=== PATIENT | male | born 1985 | race Two or more races ===

== ENCOUNTER 2024-10-08 11:02 | Emergency (ER) | payer MEDICAID, SELFPAY ==
[2024-10-08 11:39] VITALS: BP 187/118; BP 197/111; PULSE 87; RESP 17; TEMP 36.9; O2SAT 97; BMI 31.3
--- NOTE | 2024-10-08 11:53 | EDNOTE_ITS ---
Lower Extremity Injury RME/HPI General Chief Complaint: Extremity Injury, Lower Stated Complaint: GOUT ATTACK RIGHT FOOT Time Seen by Provider: 10/08/24 11:11 Arrival date/time: 10/08/24 11:02 39-year-old male with history of gout presents the emergency department complaints of gout flare to the right foot Limitations: no limitations Related Data Previous Rx's ?Medication ?Instructions ?Recorded indomethacin 50 mg capsule 50 mg PO TID #30 caps 01/11/21 meloxicam 7.5 mg tablet 7.5 mg PO QDAY #10 tabs 12/13/21 pantoprazole 20 mg tablet,delayed 20 mg PO QDAY #10 tabs 12/14/21 release (Protonix) ibuprofen 800 mg tablet 800 mg PO TID PRN pain #30 tabs 08/11/22 prednisone 50 mg tablet 50 mg PO QDAY #5 tabs 08/11/22 hydrocodone 5 mg-acetaminophen 325 1 tab PO BID PRN pain #10 tabs 05/30/23 mg tablet lidocaine 5 % topical patch 3 patch topical QDAY #6 ea 07/14/23 naproxen 500 mg tablet (Naprosyn) 500 mg PO BID PRN pain #30 tabs 07/14/23 lidocaine 5 % topical patch 1 patch topical Q24H #15 ea 06/22/24 naproxen 500 mg tablet (Naprosyn) 500 mg PO BID PRN pain #60 tabs 06/22/24 colchicine 0.6 mg tablet 0.6 mg PO QDAY 1 day #1 tab 10/08/24 hydrocodone 5 mg-acetaminophen 325 1 tab PO BID PRN pain #6 tabs 10/08/24 mg tablet indomethacin 50 mg capsule 50 mg PO TID 5 days #15 caps 10/08/24 indomethacin 50 mg capsule 50 mg PO TID 5 days #15 caps 10/08/24 prednisone 10 mg tablet 30 mg (3 x 10 mg) PO BID 3 days 10/08/24 #18 tabs prednisone 10 mg tablet 30 mg (3 x 10 mg) PO BID 3 days 10/08/24 #18 tabs Allergies Allergy/AdvReac Type Severity Reaction Status Date / Time No Known Allergies Allergy Verified 10/08/24 11:04 Review of Systems Review of Systems Systems Reviewed: All systems reviewed, normal except as documented Constitutional Constitutional: Reports system reviewed and no additional complaints, except as documented, Denies fever(s) and Denies headache(s) Eyes Eyes: Reports system reviewed and no additional complaints, except as documented and Denies blurry vision ENT Ears, Nose, Mouth, and Throat: Reports system reviewed and no additional complaints, except as documented, Denies headache(s), Denies nasal congestion and Denies nasal discharge Cardiovascular Cardiovascular: Reports system reviewed and no additional complaints, except as documented, Denies chest pain and Denies dyspnea Respiratory Respiratory: Reports system reviewed and no additional complaints, except as documented, Denies chest congestion, Denies cough and Denies dyspnea Gastrointestinal Gastrointestinal: Reports system reviewed and no additional complaints, except a s documented and Denies abdominal pain Musculoskeletal Musculoskeletal: Reports system reviewed and no additional complaints, except as documented, Reports abnormal gait, Reports arthralgias, Denies deformity, Denies joint swelling, Denies numbness, Reports stiffness and Denies tingling Integumentary/Breasts Skin/Breast: Reports system reviewed and no additional complaints, except as documented and Denies rash Neurologic Neurologic: Reports system reviewed and no additional complaints, except as documented, Reports as per HPI, Reports abnormal gait, Denies headache(s), Denies numbness and Denies tingling Past Medical History Past Medical History NEUROLOGIC: Negative Neurological Disorders CARDIAC: Negative Cardiac Disorders ED Exam General Limitations: Present no limitations General appearance: Present alert and in no apparent distress Head Head exam: Present atraumatic Eye Eye exam: Present normal appearance, PERRL and EOMI ENT ENT exam: Present normal exam, normal oropharynx and mucous membranes moist Neck Neck exam: Present normal inspection, full ROM and trachea midline Chest Chest inspection: Present normal inspection and symmetric chest wall rise Respiratory Respiratory exam: Present normal lung sounds bilaterally Cardiovascular Cardiovascular exam: Present regular rate, normal rhythm and normal heart sounds Abdominal Exam Abdominal exam: Present soft and normal bowel sounds Extremities Exam Extremities exam: Present full ROM, tenderness (Foot pain right) and normal capillary refill; Absent pedal edema, joint swelling or calf tenderness Back Exam Back exam: Present normal inspection and full ROM Neurological Exam Neurological exam: Present alert, oriented X3 and CN II-XII intact Psychiatric Psychiatric exam: Present normal affect and normal mood Skin Skin exam: Present warm, dry, intact and normal color Course Quality Measures none Orders Category Date Time Status Colchicine Med 10/08/24 11:49 Discontinued 1.2 mg PO X1 ONE Dexamethasone Inj [Decadron Inj] Med 10/08/24 11:49 Discontinued 10 mg PO X1 ONE Ketorolac Inj [Toradol Inj] Med 10/08/24 11:49 Discontinued 30 mg IM X1 ONE Vital Signs Vital signs: Vital Signs Temperature 98.5 F 10/08/24 11:39 Pulse Rate 87 10/08/24 11:39 Respiratory Rate 17 10/08/24 11:39 Blood Pressure 197/111 H 10/08/24 11:39 Pulse Oximetry (%) 97 10/08/24 11:39 Oxygen Delivery Method Room Air 10/08/24 11:39 O2 saturation 97% room air within normal limits Extremity Injury, Lower MDM Narrative MDM Narrative:: 39-year-old male with history of gout presents the emergency department complaints of gout flare to the right foot Patient reports swelling to right foot patient reports no recent injury patient reports he is having gout attack Patient given pain medication here discharged with meds Patient discharged home in no distress to follow-up with primary care doctor in the next 24 to 48 hours and for any worsening symptoms to return to the ER immediately Patient data External records reviewed:: [facility] previous records Clinical information provided by:: patient Social determinants that could affect healthcare access:: none Patient has the following chronic illnesses:: None How is presenting disease/condition affected by chronic disease/condition?: no chronic disease Evaluation data The following diagnostics were reviewed and interpreted by me:: other (specify) (N/A) Lab and/or radiology exams considered but not ordered:: Consider not ordered Interpretation Summary: N/A Medications / Prescriptions Medications or Prescriptions considered but not ordered:: Given Medication administrations:: Medication Administration History Discontinued Medications Colchicine (Colchicine 0.6 Mg Tablet) 1.2 mg PO X1 ONE Stop: 10/08/24 11:50 Last Admin: 10/08/24 12:19 Dose: 1.2 mg Documented By: ARF Dexamethasone Sodium Phosphate (Dexamethasone Sod Phos Inj 10 Mg/Ml Vial) 10 mg PO X1 ONE Stop: 10/08/24 11:50 Last Admin: 10/08/24 12:20 Dose: 10 mg Documented By: ARF Ketorolac Tromethamine (Ketorolac Inj 30 Mg/Ml Vial) 30 mg IM X1 ONE Stop: 10/08/24 11:50 Last Admin: 10/08/24 12:19 Dose: 30 mg Documented By: ARF Given Consultations Consultation(s) initiated? (list below): No Diagnosis Extremity Injury, Lower Differential Diagnosis: ankle sprain and strain, fracture of toe and ankle fracture Most likely diagnosis given after review of the tests above:: Foot sprain Admission Indicated Admission indicated?: not indicated Admission Request Was there a request for admission?: No Disposition Plan Disposition Plan: Discharge Discharge Attestation Discharge Attestation: The patient and all family members were given an opportunity to ask questions and understood the discharge instructions. Discharge instructions specifically effects, indications for sooner follow up or return to the emergency department, and the expected course of current diagnosis. Patient condition: Stable Discharge Plan Plan Patient Disposition: HOME (Self Care) Disposition Comment: Stable Prescriptions/Referrals Prescriptions/Med Rec: New prednisone 10 mg tablet 30 mg PO BID 3 Days Qty: 18 0RF indomethacin 50 mg capsule 50 mg PO TID 5 Days Qty: 15 0RF Rx Instructions: administer with food or milk prednisone 10 mg tablet 30 mg PO BID 3 Days Qty: 18 0RF hydrocodone-acetaminophen 5-325 mg tablet 1 tab PO BID MDD 10 PRN (Reason: pain) Qty: 6 0RF indomethacin 50 mg capsule 50 mg PO TID 5 Days Qty: 15 0RF Rx Instructions: administer with food or milk colchicine 0.6 mg tablet 0.6 mg PO QDAY 1 Days Qty: 1 0RF Discontinued colchicine 0.6 mg capsule 0.6 mg PO BID Qty: 10 0RF colchicine 0.6 mg capsule 0.6 mg PO QDAY Qty: 1 0RF No Action pantoprazole [Protonix] 20 mg tablet,delayed release (DR/EC) 20 mg PO QDAY Qty: 10 0RF indomethacin 50 mg capsule 50 mg PO TID Qty: 30 0RF Rx Instructions: administer with food or milk meloxicam 7.5 mg tablet 7.5 mg PO QDAY Qty: 10 0RF ibuprofen 800 mg tablet 800 mg PO TID PRN (Reason: pain) Qty: 30 0RF prednisone 50 mg tablet 50 mg PO QDAY Qty: 5 0RF hydrocodone-acetaminophen 5-325 mg tablet 1 tab PO BID MDD 10 PRN (Reason: pain) Qty: 10 0RF naproxen [Naprosyn] 500 mg tablet 500 mg PO BID PRN (Reason: pain) Qty: 30 0RF lidocaine 5 % adhesive patch,medicated 3 patch topical QDAY Qty: 6 0RF Rx Instructions: leave on most painful area for up to 12 hrs naproxen [Naprosyn] 500 mg tablet 500 mg PO BID PRN (Reason: pain) Qty: 60 0RF lidocaine 5 % adhesive patch,medicated 1 patch topical Q24H Qty: 15 0RF Rx Instructions: leave on most painful area for up to 12 hrs Problem List Clinical Impression: Gout attack Patient/Caregiver Discharge Instructions Education Materials: What Is Gout? Additional Instructions: Please follow up with your primary care doctor in the next 24-48hrs for any worsening symptoms return here immediately Print Language: Slovenian Stand Alone Forms: Feli Award Info., Work/School Release, Patient Portal Info Letter PA/DIGITAL IMAGER Supervising Physician PA/DIGITAL IMAGER Supervising Physician: dr taylor
[2024-10-08] MEDS: KETOROLAC INJ 30 MG/ML VIAL IM (12:19)
[2024-10-08] MEDS: COLCHICINE 0.6 MG TABLET 1.2 MG PO (12:19)
[2024-10-08] MEDS: DEXAMETHASONE SOD PHOS INJ 10 MG/ML VIAL PO (12:20)
== END 2024-10-08 13:31 | disposition home or self-care (01) ==
PROVIDERS: Emergency Provider Emergency Medicine; PCP Family Medicine
DX: M10.9 Gout, unspecified (principal)
CPT/HCPCS: 96372; 99283; J1100; J1885; A9270

== ENCOUNTER 2025-01-04 11:36 | Emergency (ER) | payer MEDICAID, SELFPAY ==
[2025-01-04 11:37] VITALS: BMI 34.7
[2025-01-04 12:14] VITALS: BP 166/100; PULSE 74; RESP 18; TEMP 36.9; O2SAT 98
--- NOTE | 2025-01-04 12:46 | EDNOTE_ITS ---
<Statement entered by Zaida Rocha MD - 01/15/25 19:23> As co-signing physician, I was present and available for consult prn. I concur with the plan and care as documented by the midlevel provider. ED Extremity Problem RME/HPI General Chief complaint: Extremity Problem,Nontraumatic Stated complaint: GOUT FLAIR UP SINCE YESTERDAY Time Seen by Provider: 01/04/25 12:22 Arrival date/time: 01/04/25 11:36 This is a 39-year-old male that comes in with complaints of gout flare to his r ight ankle. Patient states that this has happened before. Patient states he is already on colchicine. Patient states he had a similar flareup in September and was given steroids and anti-inflammatories at that time. Patient states this helped his pain. Patient has a history of gout. Related Data Previous Rx's ?Medication ?Instructions ?Recorded indomethacin 50 mg capsule 50 mg PO TID #30 caps 01/11 meloxicam 7.5 mg tablet 7.5 mg PO QDAY #10 tabs 11/26 07/17 pantoprazole 20 mg tablet,delayed 20 mg PO QDAY #10 ta bs 12/14/21 release (Protonix) ibuprofen 800 mg tablet 800 mg PO TID PRN pain #30 t abs 08/11/22 prednisone 50 mg tablet 50 mg PO QDAY #5 tabs hydrocodone 5 mg-acetaminophen 325 1 tab PO BID PRN pa in #10 tabs 05/30/23 mg tablet lidocaine 5 % topical patch 3 patch topical QDAY #6 ea 07/14/23 naproxen 500 mg tablet (Naprosyn) 500 mg PO BID PRN pa in #30 tabs 07/14/23 lidocaine 5 % topical patch 1 patch topical Q24H #15 e a 06/22/24 naproxen 500 mg tablet (Naprosyn) 500 mg PO BID PRN pa in #60 tabs 06/22/24 hydrocodone 5 mg-acetaminophen 325 1 tab PO BID PRN pa in #6 tabs 10/08/24 mg tablet Allergies Allergy/AdvReac Type Severity Reaction Status Date / Time No Known Allergies Allergy Verified 01/04/25 11:38 Review of Systems Review of Systems Systems Reviewed: All systems reviewed, normal except as documented Past Medical History Past Medical History NEUROLOGIC: Negative Neurological Disorders CARDIAC: Negative Cardiac Disorders ED Exam General General appearance: Present alert and in no apparent distress Head Head exam: Present atraumatic Eye Eye exam: Present normal appearance, PERRL and EOMI ENT ENT exam: Present normal exam, normal oropharynx and mucous membranes moist Neck Neck exam: Present normal inspection, full ROM and trachea midline Chest Chest inspection: Present normal inspection and symmetric chest wall rise Respiratory Respiratory exam: Present normal lung sounds bilaterally Cardiovascular Cardiovascular exam: Present regular rate Abdominal Exam Abdominal exam: Present soft Extremities Exam Extremities exam: Present normal inspection and full ROM Back Exam Back exam: Present normal inspection and full ROM Neurological Exam Neurological exam: Present alert, oriented X3 and CN II-XII intact Psychiatric Psychiatric exam: Present normal affect and normal mood Skin Skin exam: Present warm, dry, intact and normal color Course Quality Measures none Orders Category Date Time Status HYDROcodone*/APAP 5/325 [[place] 5/325] Med 01/04/25 12:45 Discontinued 1 tab PO X1 ONE Ketorolac Inj [Toradol Inj] Med 01/04/25 12:42 Discontinued 60 mg IM X1 ONE Ondansetron Odt [Zofran Odt] Med 01/04/25 12:46 Discontinued 4 mg PO X1 ONE predniSONE Med 01/04/25 12:42 Discontinued 40 mg PO X1 ONE Vital Signs Vital signs: Vital Signs Temperature 98.4 F 01/04/25 12:14 Pulse Rate 74 01/04/25 12:14 Respiratory Rate 18 01/04/25 12:14 Blood Pressure 166/100 H 01/04/25 12:14 Pulse Oximetry (%) 98 01/04/25 12:14 Oxygen Delivery Method Room Air 01/04/25 12:14 Extremity Problem MDM Narrative MDM Narrative:: I spoke to patient at length importance of following up with primary provider. Patient was already taking colchicine daily. I explained to him that he needs to have his labs checked to check his kidney and liver because daily dose seen of colchicine can hurt your kidneys and liver. Patient verbalized understanding. I also would like his primary doctor to know of what we treated him with today. Patient states he will follow-up with primary provider in 1 to 2 days Patient data External records reviewed:: [facility] previous records Clinical information provided by:: patient Social determinants that could affect healthcare access:: none Patient has the following chronic illnesses:: gout, see hpi How is presenting disease/condition affected by chronic disease/condition?: exacerbated by Evaluation data The following diagnostics were reviewed and interpreted by me:: other (specify) (none ) Lab and/or radiology exams considered but not ordered:: none Interpretation Summary: n/a Medications / Prescriptions Medications or Prescriptions considered but not ordered:: none Medication administrations:: Medication Administration History Discontinued Medications Hydrocodone Bitart/Acetaminophen (Hydrocodone/Apap 5/325 Tablet) 1 tab PO X1 ONE Stop: 01/04/25 12:46 Last Admin: 01/04/25 13:18 Dose: 1 tab Documented By: HARINI Ketorolac Tromethamine (Ketorolac Inj 60 Mg/2 Ml Vial) 60 mg IM X1 ONE Stop: 01/04/25 12:43 Last Admin: 01/04/25 13:19 Dose: 60 mg Documented By: HARINI Ondansetron HCl (Ondansetron Odt 4 Mg Tabrap) 4 mg PO X1 ONE; Protocol Stop: 01/04/25 12:47 Last Admin: 01/04/25 13:18 Dose: 4 mg Documented By: HARINI Prednisone (Prednisone 20 Mg Tablet) 40 mg PO X1 ONE Stop: 01/04/25 12:43 Last Admin: 01/04/25 13:18 Dose: 40 mg Documented By: HARINI see note Consultations Consultation(s) initiated? (list below): No Diagnosis Most likely diagnosis given after review of the tests above:: gout flair up Admission Indicated Admission indicated?: not indicated Admission Request Was there a request for admission?: No Disposition Plan Disposition Plan: Discharge Discharge Attestation Discharge Attestation: The patient and all family members were given an opportunity to ask questions and understood the discharge instructions. Discharge instructions specifically effects, indications for sooner follow up or return to the emergency department, and the expected course of current diagnosis. Patient condition: Stable Discharge Plan Plan Patient Disposition: HOME (Self Care) Patient condition on transfer: Stable Prescriptions/Referrals Prescriptions/Med Rec: No Action pantoprazole [Protonix] 20 mg tablet,delayed release (DR/EC) 20 mg PO QDAY Qty: 10 0RF indomethacin 50 mg capsule 50 mg PO TID Qty: 30 0RF Rx Instructions: administer with food or milk meloxicam 7.5 mg tablet 7.5 mg PO QDAY Qty: 10 0RF ibuprofen 800 mg tablet 800 mg PO TID PRN (Reason: pain) Qty: 30 0RF prednisone 50 mg tablet 50 mg PO QDAY Qty: 5 0RF hydrocodone-acetaminophen 5-325 mg tablet 1 tab PO BID MDD 10 PRN (Reason: pain) Qty: 10 0RF naproxen [Naprosyn] 500 mg tablet 500 mg PO BID PRN (Reason: pain) Qty: 30 0RF lidocaine 5 % adhesive patch,medicated 3 patch topical QDAY Qty: 6 0RF Rx Instructions: leave on most painful area for up to 12 hrs hydrocodone-acetaminophen 5-325 mg tablet 1 tab PO BID MDD 10 PRN (Reason: pain) Qty: 6 0RF naproxen [Naprosyn] 500 mg tablet 500 mg PO BID PRN (Reason: pain) Qty: 60 0RF lidocaine 5 % adhesive patch,medicated 1 patch topical Q24H Qty: 15 0RF Rx Instructions: leave on most painful area for up to 12 hrs Problem List Clinical Impression: Acute gout of right ankle Patient/Caregiver Discharge Instructions Discharge Activity: activity as tolerated Education Materials: ED Gout Additional Instructions: Please follow-up with primary provider in 1 to 2 days. Come back to the emergency room if symptoms change or worsen. Print Language: Maori Stand Alone Forms: Feli Award Info., Patient Portal Info Letter CITLALI/BRANDIE Supervising Physician CITLALI/BRANDIE Supervising Physician: [email or web address]
[2025-01-04] MEDS: HYDROcodone/APAP 5/325 TABLET 1 TAB PO (13:18)
[2025-01-04] MEDS: ONDANSETRON ODT 4 MG TABRAP PO (13:18)
[2025-01-04] MEDS: predniSONE 20 MG TABLET 40 MG PO (13:18)
[2025-01-04] MEDS: KETOROLAC INJ 60 MG/2 ML VIAL IM (13:19)
== END 2025-01-04 13:26 | disposition home or self-care (01) ==
PROVIDERS: Emergency Provider Emergency Medicine; PCP Family Medicine
DX: M10.9 Gout, unspecified (principal)
CPT/HCPCS: 96372; 99283; J1885; J7512; Q0162; A9270

== ENCOUNTER 2025-06-10 11:56 | Emergency (ER) | payer MEDICAID, SELFPAY ==
--- NOTE | 2025-06-10 12:19 | EDNOTE_ITS ---
Upper Extremity Injury RME/HPI General Chief Complaint: Hand/Wrist Problems Stated Complaint: LEFT HAND GOUT FLARE UP Time Seen by Provider: 06/10/25 12:04 Arrival date/time: 06/10/25 11:56 39-year-old male with history of gout presents emergency department today for complaints of gout flareup left hand patient present no recent injury Limitations: no limitations Related Data Previous Rx's ?Medication ?Instructions ?Recorded indomethacin 50 mg capsule 50 mg PO TID #30 caps 01/11 meloxicam 7.5 mg tablet 7.5 mg PO QDAY #10 tabs 11/26 07/17 pantoprazole 20 mg tablet,delayed 20 mg PO QDAY #10 ta bs 12/14/21 release (Protonix) ibuprofen 800 mg tablet 800 mg PO TID PRN pain #30 t abs 08/11/22 prednisone 50 mg tablet 50 mg PO QDAY #5 tabs hydrocodone 5 mg-acetaminophen 325 1 tab PO BID PRN pa in #10 tabs 05/30/23 mg tablet lidocaine 5 % topical patch 3 patch topical QDAY #6 ea 07/14/23 naproxen 500 mg tablet (Naprosyn) 500 mg PO BID PRN pa in #30 tabs 07/14/23 lidocaine 5 % topical patch 1 patch topical Q24H #15 e a 06/22/24 naproxen 500 mg tablet (Naprosyn) 500 mg PO BID PRN pa in #60 tabs 06/22/24 hydrocodone 5 mg-acetaminophen 325 1 tab PO BID PRN pa in #6 tabs 10/08/24 mg tablet colchicine 0.6 mg tablet 0.6 mg PO QDAY 1 day #1 tab 06/10/25 hydrocodone 5 mg-acetaminophen 325 1 tab PO BID PRN pa in #6 tabs 06/10/25 mg tablet indomethacin 50 mg capsule 50 mg PO TID 5 days #15 cap s 06/10/25 Allergies Allergy/AdvReac Type Severity Reaction Status Date / Time No Known Allergies Allergy Verified 06/10/25 11:59 Review of Systems Review of Systems Systems Reviewed: All systems reviewed, normal except as documented Constitutional Constitutional: Reports system reviewed and no additional complaints, except as documented, Denies fever(s) and Denies headache(s) Eyes Eyes: Reports system reviewed and no additional complaints, except as documented and Denies blurry vision ENT Ears, Nose, Mouth, and Throat: Reports system reviewed and no additional complaints, except as documented, Denies headache(s), Denies nasal congestion and Denies nasal discharge Cardiovascular Cardiovascular: Reports system reviewed and no additional complaints, except as documented, Denies chest pain and Denies dyspnea Respiratory Respiratory: Reports system reviewed and no additional complaints, except as documented, Denies chest congestion, Denies cough and Denies dyspnea Gastrointestinal Gastrointestinal: Reports system reviewed and no additional complaints, except as documented and Denies abdominal pain Musculoskeletal Musculoskeletal: Reports system reviewed and no additional complaints, except as documented, Reports arthralgias, Denies deformity, Denies numbness, Reports stiffness and Denies tingling Integumentary/Breasts Skin/Breast: Reports system reviewed and no additional complaints, except as documented and Denies rash Neurologic Neurologic: Reports system reviewed and no additional complaints, except as documented, Reports as per HPI, Denies headache(s), Denies numbness and Denies tingling Past Medical History Past Medical History NEUROLOGIC: Negative Neurological Disorders CARDIAC: Positive Hypertension; Negative Cardiac Disorders or Congestive Heart Failure RESPIRATORY: Negative Chronic Obstructive Pulmonary Disease (COPD) GENITOURINARY: Negative Renal Disease ENDOCRINE: Negative Diabetes Mellitus Type 1 or Diabetes Mellitus Type 2 Social History SMOKING STATUS: Never smoker SUBSTANCE USE: marijuana ED Exam General Limitations: Present no limitations General appearance: Present alert and in no apparent distress Head Head exam: Present atraumatic Eye Eye exam: Present normal appearance, PERRL and EOMI ENT ENT exam: Present normal exam, normal oropharynx and mucous membranes moist Neck Neck exam: Present normal inspection, full ROM and trachea midline Chest Chest inspection: Present normal inspection and symmetric chest wall rise Respiratory Respiratory exam: Present normal lung sounds bilaterally Cardiovascular Cardiovascular exam: Present regular rate, normal rhythm and normal heart sounds Abdominal Exam Abdominal exam: Present soft and normal bowel sounds Extremities Exam Extremities exam: Present full ROM, tenderness, normal capillary refill and joint swelling Back Exam Back exam: Present normal inspection and full ROM Neurological Exam Neurological exam: Present alert, oriented X3, CN II-XII intact, normal gait and reflexes normal; Absent motor sensory deficit Psychiatric Psychiatric exam: Present normal affect and normal mood Skin Skin exam: Present warm, dry, intact and normal color Course Quality Measures none Orders Category Date Time Status Colchicine Med 06/10/25 12:04 Discontinued 1.2 mg PO X1 ONE Dexamethasone Inj [Decadron Inj] Med 06/10/25 12:04 Discontinued 10 mg PO X1 ONE Ketorolac Inj [Toradol Inj] Med 06/10/25 12:04 Discontinued 30 mg IM X1 ONE Vital Signs Vital signs: Vital Signs Temperature 98.2 F 06/10/25 12:21 Pulse Rate 69 06/10/25 12:21 Respiratory Rate 18 06/10/25 12:21 Blood Pressure 179/94 H 06/10/25 12:21 Pulse Oximetry (%) 96 06/10/25 12:21 Oxygen Delivery Method Room Air 06/10/25 12:21 O2 saturation 98% room air WNL Extremity Injury MDM Narrative MDM Narrative:: 39-year-old male with history of gout presents emergency department today for complaints of gout flareup left hand patient present no recent injury On exam based on symptomatology symptoms are consistent with gout Patient was treated accordingly Patient discharged home in no distress to follow-up with primary care doctor in the next 24 to 48 hours and for any worsening symptoms to return to the ER immediately Patient data External records reviewed:: [facility] previous records Clinical information provided by:: patient Social determinants that could affect healthcare access:: none Patient has the following chronic illnesses:: Gout How is presenting disease/condition affected by chronic disease/condition?: caused by Evaluation data The following diagnostics were reviewed and interpreted by me:: other (specify) Lab and/or radiology exams considered but not ordered:: N/A Interpretation Summary: N/A Medications / Prescriptions Medications or Prescriptions considered but not ordered:: Given Medication administrations:: Medication Administration History Discontinued Medications Colchicine (Colchicine 0.6 Mg Tablet) 1.2 mg PO X1 ONE Stop: 06/10/25 12:05 Dexamethasone Sodium Phosphate (Dexamethasone Sod Phos Inj 10 Mg/Ml Vial) 10 mg PO X1 ONE Stop: 06/10/25 12:05 Last Admin: 06/10/25 12:24 Dose: 10 mg Documented By: Ketorolac Tromethamine (Ketorolac Inj 30 Mg/Ml Vial) 30 mg IM X1 ONE Stop: 06/10/25 12:05 Last Admin: 06/10/25 12:25 Dose: 30 mg Documented By: Given Consultations Consultation(s) initiated? (list below): No Diagnosis Upper Extremity Injury Differential Diagnosis: other (Sprain, hand fracture, go ut) Most likely diagnosis given after review of the tests above:: Gout Admission Indicated Admission indicated?: not indicated Admission Request Was there a request for admission?: No Disposition Plan Disposition Plan: Discharge Discharge Attestation Discharge Attestation: The patient and all family members were given an opportunity to ask questions an d understood the discharge instructions. Discharge instructions specifically effects, indications for sooner follow up or return to the emergency department, and the expected course of current diagnosis. Patient condition: Stable Discharge Plan Plan Patient Disposition: HOME (Self Care) Discharge Disposition comment: Stable Prescriptions/Referrals Prescriptions/Med Rec: New hydrocodone-acetaminophen 5-325 mg tablet 1 tab PO BID MDD 10 PRN (Reason: pain) Qty: 6 0RF indomethacin 50 mg capsule 50 mg PO TID 5 Days Qty: 15 0RF Rx Instructions: administer with food or milk colchicine 0.6 mg tablet 0.6 mg PO QDAY 1 Days Qty: 1 0RF No Action pantoprazole [Protonix] 20 mg tablet,delayed release (DR/EC) 20 mg PO QDAY Qty: 10 0RF indomethacin 50 mg capsule 50 mg PO TID Qty: 30 0RF Rx Instructions: administer with food or milk meloxicam 7.5 mg tablet 7.5 mg PO QDAY Qty: 10 0RF ibuprofen 800 mg tablet 800 mg PO TID PRN (Reason: pain) Qty: 30 0RF prednisone 50 mg tablet 50 mg PO QDAY Qty: 5 0RF hydrocodone-acetaminophen 5-325 mg tablet 1 tab PO BID MDD 10 PRN (Reason: pain) Qty: 10 0RF naproxen [Naprosyn] 500 mg tablet 500 mg PO BID PRN (Reason: pain) Qty: 30 0RF lidocaine 5 % adhesive patch,medicated 3 patch topical QDAY Qty: 6 0RF Rx Instructions: leave on most painful area for up to 12 hrs hydrocodone-acetaminophen 5-325 mg tablet 1 tab PO BID MDD 10 PRN (Reason: pain) Qty: 6 0RF naproxen [Naprosyn] 500 mg tablet 500 mg PO BID PRN (Reason: pain) Qty: 60 0RF lidocaine 5 % adhesive patch,medicated 1 patch topical Q24H Qty: 15 0RF Rx Instructions: leave on most painful area for up to 12 hrs Problem List Clinical Impression: Acute gout of left hand Patient/Caregiver Discharge Instructions Education Materials: ED Gout Additional Instructions: Please follow up with your primary care doctor in the next 24-48hrs for any worsening symptoms return here immediately Print Language: Kazakh Stand Alone Forms: Feli Award Info., Patient Portal Info Letter PA/CONTRACT ADMINISTRATIVE ASSISTANT Supervising Physician PA/CONTRACT ADMINISTRATIVE ASSISTANT Supervising Physician: Dr. Lazo
[2025-06-10 12:21] VITALS: BP 179/94; PULSE 69; RESP 18; TEMP 36.8; O2SAT 96; BMI 35.5
[2025-06-10] MEDS: DEXAMETHASONE SOD PHOS INJ 10 MG/ML VIAL PO (12:24)
[2025-06-10] MEDS: KETOROLAC INJ 30 MG/ML VIAL IM (12:25)
[2025-06-10] MEDS: COLCHICINE 0.6 MG TABLET 1.2 MG PO (12:38)
== END 2025-06-10 12:46 | disposition home or self-care (01) ==
LOC: SERX 12:36
PROVIDERS: Emergency Provider Nurse Practitioner Primary Care; PCP Family Medicine
DX: M10.9 Gout, unspecified (principal)
CPT/HCPCS: 96372; 99283; J1100; J1885; A9270

== ENCOUNTER 2025-10-28 13:50 | Emergency (ER) | payer MEDICAID, SELFPAY ==
[2025-10-28 14:03] VITALS: BP 187/114; BP 220/128; PULSE 98; RESP 20; TEMP 36.7; O2SAT 98
--- NOTE | 2025-10-28 14:07 | EKG_ITS ---
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
--- NOTE | 2025-10-28 14:07 | XR_ITS ---
Examination: CT abdomen and pelvis without contrast. Coronal 3-D reconstructions. Sagittal 2-D reconstructions. Date and time of exam: October 28, 2025, 1534 hours INDICATIONS: Generalized abdominal pain bilateral flank pain beginning today CTDI: vol (mGy): 11.7 DLP: (mGycm): 751 Technique: Axial images of the abdomen have been obtained, 3 mm slice thickness Intravenous contrast material has not been administered. Low dose protocols were performed. One or more of the following dose reduction techniques were used; automated exposure control, adjustment of the mA and/or KV according to patient size, use of iterative reconstruction technique. Findings: No focal liver or splenic lesions Contracted gallbladder No pancreatic mass Minimal nodular thickening left adrenal gland No renal or ureteral calculi, no hydronephrosis Aorta normal size Normal appendix No bowel obstruction Colonic diverticulosis, no diverticulitis Normal seminal vesicles No prostatomegaly Minimal thickening of the urinary bladder wall, no bladder mass or bladder calculi Advanced degenerative disc disease L5-S1 IMPRESSION: No renal or ureteral calculi, no hydronephrosis Normal appendix No bowel obstruction diverticulitis or free air
--- NOTE | 2025-10-28 14:07 | XR_ITS ---
EXAMINATION: PA lateral chest 2 views TECHNIQUE: Upright PA lateral chest 2 views Date and time: October 28, 2025, 1420 hours INDICATIONS: Right-sided chest pain today. FINDINGS: Normal heart size Osseous structures are intact No pneumonia or pulmonary edema IMPRESSION: No active disease
--- NOTE | 2025-10-28 14:16 | PD.EDRME ---
Rapid Medical Screening Exam RME Arrival date/time: 10/28/25 13:50 40-year-old male with medical history significant for alcohol use Chief Complaint: Abdominal Pain Time Seen by Provider: 10/28/25 14:03 Vital signs: Vital Signs Temperature 98.0 F 10/28/25 14:03 Pulse Rate 98 10/28/25 14:03 Respiratory Rate 20 10/28/25 14:03 Blood Pressure 220/128 H 10/28/25 14:03 Pulse Oximetry (%) 98 10/28/25 14:03 Oxygen Delivery Method Room Air 10/28/25 14:03 Vital signs reviewed by provider: Yes Exam: On exam patient well-appearing does not appear ill or toxic no distress Clinical Impression: Labs imaging obtained
[2025-10-28 14:56] LABS: Basophils # (Auto) 0.0 Thou/mm3 (0.0-0.2); Basophils % (Auto) 0 % (0-2.5); Eosinophils # (Auto) 0.0 Thou/mm3 (0.0-0.5); Eosinophils % (Auto) 0 % (0-10); Hematocrit 41.9 % (41.0-53.0); Hemoglobin 14.3 g/dL (13.5-16.0); Immature Granulocytes Auto 0.03 Thou/mm3 (0.00-0.00); Lymphocytes # (Auto) 1.7 Thou/mm3 (1.0-4.8); Lymphocytes % (Auto) 17 % (10-50); Mean Corpuscular HGB Conc 34.1 g/dl (31.0-37.0); Mean Corpuscular Hemoglobin 28.9 pg (25.0-35.0); Mean Corpuscular Volume 85 fL (80-100); Monocytes # (Auto) 0.6 Thou/mm3 (0.0-0.8); Monocytes % (Auto) 6 % (0-12); Neutrophils # (Auto) 7.6 Thou/mm3 (1.8-7.7); Neutrophils % (Auto) 76 % (37-80); Nucleated Red Blood Cell # 0.00 Thou/mm3 (0.00-0.00); Nucleated Red Blood Cell % 0 /100 WBC (0); Platelet Count 212 Thou/mm3 (140-440); RDW Standard Deviation 43.3 fL (35.1-43.9); Red Blood Count 4.94 Miln/mm3 (4.50-5.90); White Blood Count 9.9 Thou/mm3 (3.8-10.6)
[2025-10-28 15:01] LABS: INR 1.0 (0.9-1.3); Partial Thromboplastin Time 26.1 Seconds (22.0-36.0); Prothrombin Time 10.4 Seconds (9.0-12.2)
[2025-10-28 15:06] LABS: B-Type Natriuretic Peptide < 20 pg/mL (0-100)
[2025-10-28 15:08] LABS: Alanine Aminotransferase 108 U/L (10-49); Albumin, Serum 5.6 gm/dL (3.5-5.0); Albumin/Globulin Ratio 1.9 (1.2-2.2); Alkaline Phosphatase 122 U/L (46-116); Anion Gap 11 (7-16); Aspartate Amino Transferase 85 U/L (0-34); BUN/Creatinine Ratio 7 Ratio (12-20); Bilirubin,Total 0.8 mg/dL (0.3-1.2); Blood Urea Nitrogen 7 mg/dL (9-23); Calcium 9.9 mg/dL (8.3-10.6); Calcium (Corrected) 9.9 mg/dL (8.5-10.1); Carbon Dioxide 28.4 mMol/L (20.0-31.0); Chloride 101 mMol/L (98-107); Creatinine (Component) 1.0 mg/dL (0.6-1.3); Globulin 2.9 gm/dL (2.3-3.5); Glucose 167 mg/dL (74-106); Lipase 30 U/L (12-53); Magnesium 2.0 mg/dL (1.6-2.6); Osmolality,Calculated 281 (275-295); Potassium 4.0 mMol/L (3.4-5.1); Sodium 140 mMol/L (136-145); Total Protein 8.5 gm/dL (5.7-8.2); Troponin I < 0.020 ng/mL (0.0-0.045); eGFR > 60 See Note
[2025-10-28 15:21] LABS: Collection Type, Urine Clean Catch
[2025-10-28 15:36] LABS: Bilirubin,Urine Negative (Negative); Blood,Urine Negative (Negative); Clarity,Urine Clear (Clear/Hazy); Color,Urine Lt-Yellow (Lt Yel-Yel); Culture Indicated,Urine Not Indicated; Glucose, Urine Negative (Negative); Ketones,Urine Negative (Negative); Leukocyte Esterase,Urine Negative (Negative); Nitrite,Urine Negative (Negative); PH,Urine 6.5 (5.0-7.0); Protein,Urine Negative (Neg - Trace); RBC,Urine 3 /hpf (0-3); Specific Gravity,Urine 1.009 (1.001-1.035); Squamous Epithelial Cell,Urine < 1 /hpf (0-5); Urobilinogen,Urine Negative mg/dL (0.0-1.0); WBC,Urine < 1 /hpf (0-5)
[2025-10-28 15:40] LABS: Amphetamine/Methamp Scrn,U Negative (Negative); Barbiturate Screen,Urine Negative (Negative); Benzodiazepines Screen,Urine Negative (Negative); Benzoylecgonine Screen, Ur Negative (Negative); Fentanyl Screen,Urine Negative (Negative); Opiate Screen,Urine Positive (Negative); THC Screen,Urine Positive (Negative)
--- NOTE | 2025-10-28 18:18 | EDNOTE_ITS ---
ED General RME/HPI General Chief complaint: Abdominal Pain Stated complaint: ABD CRAMPS; UNABLE TO LIFT R) ARM ALL THE WAY Time Seen by Provider: 10/28/25 14:03 Arrival date/time: 10/28/25 13:50 RME / HPI RME / HPI narrative: 10/28/25 13:50 40-year-old male with medical history significant for alcohol use Exam: On exam patient well-appearing does not appear ill or toxic no distress Impression: Labs imaging obtained Related Data Previous Rx's ?Medication ?Instructions ?Recorded indomethacin 50 mg capsule 50 mg PO TID #30 caps 01/11 meloxicam 7.5 mg tablet 7.5 mg PO QDAY #10 tabs 11/26 07/17 pantoprazole 20 mg tablet,delayed 20 mg PO QDAY #10 ta bs 12/14/21 release (Protonix) ibuprofen 800 mg tablet 800 mg PO TID PRN pain #30 t abs 08/11/22 prednisone 50 mg tablet 50 mg PO QDAY #5 tabs hydrocodone 5 mg-acetaminophen 325 1 tab PO BID PRN pa in #10 tabs 05/30/23 mg tablet lidocaine 5 % topical patch 3 patch topical QDAY #6 ea 07/14/23 naproxen 500 mg tablet (Naprosyn) 500 mg PO BID PRN pa in #30 tabs 07/14/23 lidocaine 5 % topical patch 1 patch topical Q24H #15 e a 06/22/24 naproxen 500 mg tablet (Naprosyn) 500 mg PO BID PRN pa in #60 tabs 06/22/24 hydrocodone 5 mg-acetaminophen 325 1 tab PO BID PRN pa in #6 tabs 10/08/24 mg tablet hydrocodone 5 mg-acetaminophen 325 1 tab PO BID PRN pa in #6 tabs 06/10/25 mg tablet naproxen 250 mg tablet 250 mg PO BID PRN pain 1 wee k #14 10/28/25 tabs simethicone 180 mg capsule 180 mg PO QDAY 1 week #7 ca ps 10/28/25 Allergies Allergy/AdvReac Type Severity Reaction Status Date / Time No Known Allergies Allergy Verified 10/28/25 13:53 ED Exam Narrative Physical exam: Physical Exam: GENERAL: Awake, answering questions appropriately, appears stated age HEENT: NC/AT. Moist mucosa. PERRLA/EOMI. CARDIO: Heart RRR, no obvious murmurs, no JVD. PULM: No coughing or visible SOB. Lungs CTA B/L. GI: Abdomen soft, NT/ND, +BS. SKIN/MSK/EXT: Patient has right shoulder discomfort, empty can test positive, no gross deformities noted, no sign of dislocation. No wounds/discoloration/rashes/edema/amputations. +Pedal pulses present B/L. NEURO: Oriented x3, Moves extremities x3; has some trouble moving right upper extremity greater than 90 degrees, no focal neurologic deficits noted. Course Quality Measures none Orders Category Date Time Status EKG (ED ONLY) *Do not use* NOW Care 10/28/25 14:[address] abdomen pelvis wo con Stat Exams 10/28/25 14:07 Completed EKG (ED Only) Stat Exams 10/28/25 14:07 Draft XR chest 2V Stat Exams 10/28/25 14:07 Completed B-Type Natriuretic Peptide Stat Lab 10/28/25 14:34 Completed CBC Stat Lab 10/28/25 14:34 Completed Comprehensive Metabolic Panel Stat Lab 10/28/25 14:34 Completed Drug Screen,Urine Stat Lab 10/28/25 14:53 Completed Lipase Stat Lab 10/28/25 14:34 Completed Magnesium Stat Lab 10/28/25 14:34 Completed Partial Thromboplastin Time Stat Lab 10/28/25 14:34 Completed Prothrombin Time with INR Stat Lab 10/28/25 14:34 Completed Troponin I Stat Lab 10/28/25 14:34 Completed Urinalysis, C/S if Indicated Stat Lab 10/28/25 14:53 Completed Naproxen [Naprosyn] Med 10/28/25 18:17 Discontinued 500 mg PO X1 ONE Simethicone [Mylicon Chew] Med 10/28/25 18:17 Discontinued 80 mg PO X1 ONE Vital Signs Vital signs: Vital Signs Temperature 98.0 F 10/28/25 14:03 Pulse Rate 98 10/28/25 14:03 Respiratory Rate 20 10/28/25 14:03 Blood Pressure 220/128 H 10/28/25 14:03 Pulse Oximetry (%) 98 10/28/25 14:03 Oxygen Delivery Method Room Air 10/28/25 14:03 Discharge Plan Plan Patient Disposition: HOME (Self Care) Discharge Disposition comment: Please take naproxen twice a bit milligram by mouth twice a day as needed for right shoulder pain Please take simethicone 100 mg capsule once a day for abdominal discomfort Please follow-up with your primary care provider, you have an appointment tomorrow 10/29. Asked to reassess shoulder and possible need for imaging. Patient condition on transfer: Stable Prescriptions/Referrals Prescriptions/Med Rec: New simethicone 180 mg capsule 180 mg PO QDAY 7 Days Qty: 7 0RF naproxen 250 mg tablet 250 mg PO BID PRN (Reason: pain) 7 Days Qty: 14 0RF No Action pantoprazole [Protonix] 20 mg tablet,delayed release (DR/EC) 20 mg PO QDAY Qty: 10 0RF indomethacin 50 mg capsule 50 mg PO TID Qty: 30 0RF Rx Instructions: administer with food or milk meloxicam 7.5 mg tablet 7.5 mg PO QDAY Qty: 10 0RF ibuprofen 800 mg tablet 800 mg PO TID PRN (Reason: pain) Qty: 30 0RF prednisone 50 mg tablet 50 mg PO QDAY Qty: 5 0RF hydrocodone-acetaminophen 5-325 mg tablet 1 tab PO BID MDD 10 PRN (Reason: pain) Qty: 10 0RF naproxen [Naprosyn] 500 mg tablet 500 mg PO BID PRN (Reason: pain) Qty: 30 0RF lidocaine 5 % adhesive patch,medicated 3 patch topical QDAY Qty: 6 0RF Rx Instructions: leave on most painful area for up to 12 hrs hydrocodone-acetaminophen 5-325 mg tablet 1 tab PO BID MDD 10 PRN (Reason: pain) Qty: 6 0RF hydrocodone-acetaminophen 5-325 mg tablet 1 tab PO BID MDD 10 PRN (Reason: pain) Qty: 6 0RF naproxen [Naprosyn] 500 mg tablet 500 mg PO BID PRN (Reason: pain) Qty: 60 0RF lidocaine 5 % adhesive patch,medicated 1 patch topical Q24H Qty: 15 0RF Rx Instructions: leave on most painful area for up to 12 hrs Referrals: Jose C Cobos MD [Primary Care Provider] - In 1 week Problem List Clinical Impression: Abdominal pain Patient/Caregiver Discharge Instructions Education Materials: Abdominal Pain Print Language: Latvian Stand Alone Forms: Feli Award Info., Patient Portal Info Letter MDM Narrative MDM hospital course (for use when minimal MDM required): HPI: 40-year-old male with past medical history of chronic pain, lumbosacral strain, likely MASLD, obesity presenting to the ED on 10/28 with abdominal discomfort along with flank pain. Patient states that the pain started yesterday and is progressively worsened. He describes it as a achy sensation in his flank regions bilaterally which worsen with movement. States he is never experienced such pain in the past. His last bowel movement was this morning and he states everything was normal; he denies having any hematochezia, melena or hematochezia. He also denies having any concerning symptoms such as chest pain, shortness of breath, diarrhea, dizziness or fevers. During history taking, patient started talking less about his abdominal pain and started discussing his right shoulder pain which has been bothering him for several weeks. He states he only took ibuprofen 800 mg x 2 that was prescribed to him but it has not helped with his right shoulder pain. He states that he does have an appoint with his primary care provider on 10/29. Patient denies any injuries to the area and denies any any opioids; however, urine tox is positive for marijuana and opioids. Please note above physical exam findings #Differentials include: Gastritis, enteritis, musculoskeletal dysfunction including the abdominal muscles; differentials for the right shoulder pain include impingement, rotator cuff injury, adhesive capsulitis, osteoarthritis #Abdominal pain, unspecified Patient's abdominal pain is diffuse and not really specific to any organ system CT abdomen pelvis is largely unremarkable with minimal nodular thickening of the left adrenal gland noted which is not clinically significant, colonic diverticulosis without any diverticulitis, mild to minimal thickening of the urinary bladder wall without any calculi visualized and advanced degenerative disc disease in the L5-S1 region Chest x-ray and EKG were also ordered and they were both unremarkable other than sinus tachycardia Plan: Will discharge patient on simethicone #Right shoulder pain #Likely impingement syndrome Patient's likely taking prescribed [place] and ibuprofen without any much improvement He does have an appoint with his PCP on 10/29 next day Plan: Will discharge with naproxen 250mg every 6 hours as needed for pain Follow-up with PCP for further imaging Patient seen and assessed with attending Dr. Darío Gee, DO PGY-2 Internal Medicine - [facility] Medication Administration(s) Medication Administration History Discontinued Medications Naproxen (Naproxen 250 Mg Tablet) 500 mg PO X1 ONE Stop: 10/28/25 18:18 Last Admin: 10/28/25 18:35 Dose: 500 mg Documented By: TANJA Simethicone (Simethicone 80 Mg Chew) 80 mg PO X1 ONE Stop: 10/28/25 18:18 Last Admin: 10/28/25 18:48 Dose: 80 mg Documented By: EVELYN
[2025-10-28] MEDS: NAPROXEN 250 MG TABLET 500 MG PO (18:35)
[2025-10-28] MEDS: SIMETHICONE 80 MG CHEW PO (18:48)
== END 2025-10-28 18:50 | disposition home or self-care (01) ==
PROVIDERS: Nurse Practitioner Primary Care; Emergency Provider Emergency Medicine; PCP Family Medicine
DX: R10.84 Generalized abdominal pain (principal); R07.89 Other chest pain; R10.A3 Flank pain, bilateral; R00.0 Tachycardia, unspecified; M25.511 Pain in right shoulder
CPT/HCPCS: 36415; 71046; 74176; 80053; 80307; 81001; 83690; 83735; 83880; 84484; 85025; 85610; 85730; 93005; 99283; A9270